=== PATIENT | female | born 1975 | race Caucasian/White ===

== ENCOUNTER 2017-10-23 15:18 | Emergency (ER) | payer OTHER ==
[2017-10-23] MEDS ORDERED: D50W 50 ml Abboject IV ONE ×3 (15:25→19:47)
[2017-10-23] MEDS ORDERED: Sodium Chloride 0.9% 1000 ML 1,000 ML ONE ×3 (15:25→17:23)
--- NOTE | 2017-10-23 15:38 | ERPHSYRPT ---
- History of Present Illness Time Seen by Provider: 10/23/17 15:28 Source: patient Exam Limitations: no limitations Physician History: The patient is a 42-year-old female brought in by ambulance from a local doctor' s office where she was not feeling well and was nearly passing out. She was week. She hasn't been feeling well for several days. She has not eaten in 2 days. She has a chronic condition of alcoholic hepatitis with severe jaundice that has been evident for several years. She states she quit drinking alcohol 4 -6 months ago. She has a liver specialist in [place]. She also states she has an enlarged spleen. She denies vomiting or diarrhea. Timing/Duration: yesterday, gradual onset, worse Severity: severe Modifying Factors: Improves With: nothing Associated Symptoms: loss of appetite, weakness, No nausea, No vomiting, No abdominal pain Allergies/Adverse Reactions: cephalexin [From Keflex] Allergy (Intermediate, Verified 10/23/17 15:40) Rash Home Medications: Furosemide [Lasix] 20 mg PO DAILY 10/23/17 [History] Hx Tetanus, Diphtheria Vaccination/Date Given: Yes Hx Influenza Vaccination/Date Given: No Hx Pneumococcal Vaccination/Date Given: No - Review of Systems Constitutional: Fatigue, Weakness Eyes: No Symptoms Ears, Nose, & Throat: No Symptoms Respiratory: No Cough, No Dyspnea Cardiac: No Chest Pain, No Edema, No Syncope Abdominal/Gastrointestinal: Appetite Changes (decreased) Genitourinary Symptoms: No Dysuria Musculoskeletal: No Back Pain, No Neck Pain Skin: No Rash Neurological: No Dizziness, No Focal Weakness, No Sensory Changes Psychological: No Symptoms Endocrine: No Symptoms Hematologic/Lymphatic: No Symptoms Immunological/Allergic: No Symptoms All Other Systems: Reviewed and Negative - Past Medical History Pertinent Past Medical History: Yes Neurological History: No Pertinent History ENT History: No Pertinent History Cardiac History: No Pertinent History Respiratory History: No Pertinent History Endocrine Medical History: No Pertinent History Musculoskeletal History: No Pertinent History History: No Pertinent History Psycho-Social History: No Pertinent History Female Reproductive Disorders: No Pertinent History Other Medical History: swelling, gastric bypass - Past Surgical History Past Surgical History: Yes Neuro Surgical History: No Pertinent History Cardiac: No Pertinent History Respiratory: No Pertinent History Gastrointestinal: No Pertinent History Genitourinary: No Pertinent History Musculoskeletal: No Pertinent History Female Surgical History: No Pertinent History Other Surgical History: gastric bypass - Social History Smoking Status: Never smoker Exposure to second hand smoke: No Drug Use: none Patient Lives Alone: No - Nursing Vital Signs Nursing Vital Signs: Initial Vital Signs Temperature 97.8 F 10/23/17 15:23 Pulse Rate 106 H 10/23/17 15:23 Respiratory Rate 18 10/23/17 15:23 Blood Pressure 71/39 10/23/17 15:23 O2 Sat by Pulse Oximetry 100 10/23/17 15:23 Pain Scale Pain Intensity 4 - Physical Exam General Appearance: moderate distress, lethargy Eye Exam: scleral icterus Ears, Nose, Throat Exam: normal ENT inspection, TMs normal, pharynx normal, dry mucous membranes, other (poor dentition) Neck Exam: normal inspection, non-tender, supple, full range of motion Respiratory Exam: normal breath sounds, lungs clear, No respiratory distress Cardiovascular Exam: regular rate/rhythm, murmur Gastrointestinal/Abdomen Exam: distention Pelvic Exam: not done Rectal Exam: not done Back Exam: normal inspection, normal range of motion, No CVA tenderness, No vertebral tenderness Extremity Exam: normal inspection, normal range of motion, pelvis stable Neurologic Exam: confusion Skin Exam: jaundice Lymphatic Exam: No adenopathy SpO2 Interpretation: normal - Radiology Exams Chest X-ray Interpretation: Interpreted by me, Negative Ordered Tests: Active Orders 24 hr Category Date Time Status ACCUCHECK [Accucheck] STAT Care 10/23/17 16:33 Active Clean Catch Urine Specimen STAT Care 10/23/17 15:43 Active IV Insertion STAT Care 10/23/17 15:43 Active ABDOMEN AND PELVIS W/0 CONTRAS [CT] Stat Exams 10/23/17 15:44 Completed CHEST 1 VIEW (PORTABLE) Stat Exams 10/23/17 18:43 Taken AMYLASE Stat Lab 10/23/17 15:58 Completed BLOOD CULTURE Stat Lab 10/23/17 16:40 Received CBC W DIFF Stat Lab 10/23/17 15:58 Completed CMP Stat Lab 10/23/17 15:58 Completed ETHYL ALCOHOL Stat Lab 10/23/17 15:58 Completed HCG QUALITATIVE,SERUM Stat Lab 10/23/17 15:58 Completed LIPASE Stat Lab 10/23/17 15:58 Completed Lactic Acid Stat Lab 10/23/17 15:57 Completed Lactic Acid Stat Lab 10/23/17 18:55 Results Manual Differential NC Stat Lab 10/23/17 15:58 Completed PROTIME WITH INR Stat Lab 10/23/17 16:07 Completed UA W/RFX UR CULTURE Stat Lab 10/23/17 19:02 Received Urine Triage Profile Stat Lab 10/23/17 19:02 Ordered Medication Summary Generic Name Dose Route Start Last Admin Trade Name Nora PRN Reason Stop Dose Admin Sodium Chloride 1,000 mls @ 100 mls/hr 10/23/17 17:15 10/23/17 17:25 Sodium Chloride 0.9% 1000 Ml IV 11/22/17 17:14 100 mls/hr .Q10H WILFREDO Administration Sodium Chloride 1,000 mls @ 999 mls/hr 10/23/17 18:43 Sodium Chloride 0.9% 1000 Ml IV 10/23/17 19:43 .Q1H1M STA Discontinued Medications Generic Name Dose Route Start Last Admin Trade Name Nora PRN Reason Stop Dose Admin Dextrose Confirm 10/23/17 15:25 D50w 50 Ml Abboject Administered 10/23/17 15:26 Dose 50 ml IV .STK-MED ONE Dextrose Confirm 10/23/17 16:42 D50w 50 Ml Abboject Administered 10/23/17 16:43 Dose 50 ml IV .STK-MED ONE Sodium Chloride Confirm 10/23/17 15:25 Sodium Chloride 0.9% 1000 Ml Administered 10/23/17 15:26 Dose 1,000 mls @ ud .ROUTE .STK-MED ONE Sodium Chloride 1,000 mls @ 999 mls/hr 10/23/17 15:43 10/23/17 16:04 Sodium Chloride 0.9% 1000 Ml IV 10/23/17 16:43 999 mls/hr .Q1H1M STA Administration Sodium Chloride Confirm 10/23/17 15:52 Sodium Chloride 0.9% 1000 Ml Administered 10/23/17 15:53 Dose 1,000 mls @ ud .ROUTE .STK-MED ONE Ampicillin Sodium/Sulbactam Sodium 1.5 gm in 100 mls @ 200 mls/hr 10/23/17 16: 08 10/23/17 16:33 Unasyn 1.5gm / Nacl 100ml IV 10/23/17 16:37 200 mls/hr STAT STA Administration Ampicillin Sodium/Sulbactam Sodium Confirm 10/23/17 16:31 Unasyn 1.5gm / Nacl 100ml Administered 10/23/17 16:32 Dose 1.5 gm in 100 mls @ ud .ROUTE .STK-MED ONE Ondansetron HCl 4 mg 10/23/17 15:43 10/23/17 16:01 Zofran 4 Mg/2 Ml Vial IV 10/23/17 15:44 4 mg STAT ONE Administration Ondansetron HCl Confirm 10/23/17 15:52 Zofran 4 Mg/2 Ml Vial Administered 10/23/17 15:53 Dose 4 mg .ROUTE .STK-MED ONE Pantoprazole Sodium 40 mg 10/23/17 15:43 10/23/17 16:01 Protonix 40 Mg Iv IV 10/23/17 15:44 40 mg STAT ONE Administration Pantoprazole Sodium Confirm 10/23/17 15:52 Protonix 40 Mg Iv Administered 10/23/17 15:53 Dose 40 mg IV .STK-MED ONE Potassium Chloride 40 meq 10/23/17 16:58 10/23/17 17:24 Klor Con 10 Meq PO 10/23/17 16:59 40 meq STAT ONE Administration Potassium Chloride Confirm 10/23/17 17:23 Klor Con 10 Meq Administered 10/23/17 17:24 Dose 40 meq PO .STK-MED ONE Lab/Rad Data: Laboratory Result Diagrams 10/23/17 15:58 10/23/17 15:58 Laboratory Results 10/23/17 10/23/17 10/23/17 Range/Units 18:55 17:22 16:07 WBC (4.0-10.5) K/mm3 RBC (4.1-5.4) M/mm3 Hgb (12.0-16.0) gm/dl Hct (35-47) % MCV (78-100) fl MCH (26-32) pg MCHC (32-36) g/dl RDW (11.5-14.0) % Plt Count (150-450) K/mm3 MPV (6-9.5) fl Gran % (36.0-66.0) % Eos # (Auto) (0-0.5) Absolute Lymphs (auto) (1.0-4.6) Absolute Monos (auto) (0.0-1.3) Lymphocytes % (24.0-44.0) % Monocytes % (0.0-12.0) % Eosinophils % (0.00-5.0) % Basophils % (0.0-0.4) % Absolute Granulocytes (1.4-6.9) Basophils # (0-0.4) PT 62.8 H (9.95-12.35) SECONDS INR 5.28 H* (0.8-3.0) Sodium (137-145) mmol/L Potassium (3.5-5.1) mmol/L Chloride (98-107) mmol/L Carbon Dioxide (22-30) mmol/L Anion Gap (5-15) MEQ/L BUN (7-17) mg/dL Creatinine (0.52-1.04) mg/dL Estimated GFR ML/MIN Glucose (74-106) mg/dL Lactic Acid 12.1 H (0.4-2.0) Calcium (8.4-10.2) mg/dL Total Bilirubin (0.2-1.3) mg/dL AST (14-36) U/L ALT (0-35) U/L Alkaline Phosphatase (38-126) U/L Ammonia 33 H (9-30) umol/L Serum Total Protein (6.3-8.2) g/dL Albumin (3.5-5.0) g/dL Amylase (30-110) U/L Lipase (23-300) U/L Serum , Qual (Negative) Ethyl Alcohol (0-10) mg/dL 10/23/17 10/23/17 10/23/17 Range/Units 15:58 15:58 15:58 WBC 5.6 (4.0-10.5) K/mm3 RBC 2.69 L (4.1-5.4) M/mm3 Hgb 9.4 L (12.0-16.0) gm/dl Hct 27.0 L (35-47) % MCV 100.4 H (78-100) fl MCH 34.9 H (26-32) pg MCHC 34.8 (32-36) g/dl RDW 15.7 H (11.5-14.0) % Plt Count 108 L (150-450) K/mm3 MPV 10.5 H (6-9.5) fl Gran % 73.6 H (36.0-66.0) % Eos # (Auto) 0.01 (0-0.5) Absolute Lymphs (auto) 1.18 (1.0-4.6) Absolute Monos (auto) 0.28 (0.0-1.3) Lymphocytes % 21.2 L (24.0-44.0) % Monocytes % 5.0 (0.0-12.0) % Eosinophils % 0.2 (0.00-5.0) % Basophils % 0.0 (0.0-0.4) % Absolute Granulocytes 4.10 (1.4-6.9) Basophils # 0 (0-0.4) PT (9.95-12.35) SECONDS INR (0.8-3.0) Sodium 131 L (137-145) mmol/L Potassium 2.8 L* (3.5-5.1) mmol/L Chloride 99 (98-107) mmol/L Carbon Dioxide 10 L* (22-30) mmol/L Anion Gap 25.1 H (5-15) MEQ/L BUN 19 H (7-17) mg/dL Creatinine 3.76 H (0.52-1.04) mg/dL Estimated GFR 13.9 ML/MIN Glucose < 20 L* (74-106) mg/dL Lactic Acid (0.4-2.0) Calcium 8.8 (8.4-10.2) mg/dL Total Bilirubin 8.60 H (0.2-1.3) mg/dL AST 73 H (14-36) U/L ALT (0-35) U/L Alkaline Phosphatase 111 (38-126) U/L Ammonia (9-30) umol/L Serum Total Protein 6.5 (6.3-8.2) g/dL Albumin 2.1 L (3.5-5.0) g/dL Amylase 36 (30-110) U/L Lipase 28 (23-300) U/L Serum , Qual NEGATIVE (Negative) Ethyl Alcohol < 10 (0-10) mg/dL 10/23/17 Range/Units 15:57 WBC (4.0-10.5) K/mm3 RBC (4.1-5.4) M/mm3 Hgb (12.0-16.0) gm/dl Hct (35-47) % MCV (78-100) fl MCH (26-32) pg MCHC (32-36) g/dl RDW (11.5-14.0) % Plt Count (150-450) K/mm3 MPV (6-9.5) fl Gran % (36.0-66.0) % Eos # (Auto) (0-0.5) Absolute Lymphs (auto) (1.0-4.6) Absolute Monos (auto) (0.0-1.3) Lymphocytes % (24.0-44.0) % Monocytes % (0.0-12.0) % Eosinophils % (0.00-5.0) % Basophils % (0.0-0.4) % Absolute Granulocytes (1.4-6.9) Basophils # (0-0.4) PT (9.95-12.35) SECONDS INR (0.8-3.0) Sodium (137-145) mmol/L Potassium (3.5-5.1) mmol/L Chloride (98-107) mmol/L Carbon Dioxide (22-30) mmol/L Anion Gap (5-15) MEQ/L BUN (7-17) mg/dL Creatinine (0.52-1.04) mg/dL Estimated GFR ML/MIN Glucose (74-106) mg/dL Lactic Acid 13.8 H (0.4-2.0) Calcium (8.4-10.2) mg/dL Total Bilirubin (0.2-1.3) mg/dL AST (14-36) U/L ALT (0-35) U/L Alkaline Phosphatase (38-126) U/L Ammonia (9-30) umol/L Serum Total Protein (6.3-8.2) g/dL Albumin (3.5-5.0) g/dL Amylase (30-110) U/L Lipase (23-300) U/L Serum , Qual (Negative) Ethyl Alcohol (0-10) mg/dL - Progress Progress: unchanged Progress Note: 10/23/17 18:[address] Lopez of GI, Liver service, who accepts pt. Recommends albumin at 1 mg/kg/day IV, CXR, and urine culture. Counseled pt/family regarding: lab results, diagnosis, need for follow-up, rad results - Departure Time of Disposition: 18:38 Departure Disposition: Transfer (transfer to GI,liver service per Dr Lopez. ) Clinical Impression: Hepatic failure due to alcoholism, Renal failure, Hypoglycemia Condition: Fair Critical Care Time: No Referrals: JIM GONZALEZ MD [Primary Care Provider] -
[2017-10-23] MEDS ORDERED: PROTONIX 40 MG IV IV ONE (15:52)
[2017-10-23] MEDS ORDERED: Zofran 4 MG/2 ML VIAL ONE (15:52)
[2017-10-23 15:58] LABS: Basophil (Absolute #) 0 (0-0.4); Eosinophil % 0.2 % (0.00-5.0); Eosinophil (Absolute #) 0.01 (0-0.5); Granulocytes % 73.6 % (36.0-66.0); Hemoglobin 9.4 gm/dl (12.0-16.0); Lymphocyte (Absolute #) 1.18 (1.0-4.6); Lymphocytes % 21.2 % (24.0-44.0); Mean Cell Volume 100.4 fl (78-100); Mean Corpuscular Hemoglobin 34.9 pg (26-32); Mean Corpuscular Hgb Concent. 34.8 g/dl (32-36); Mean Platelet Volume 10.5 fl (6-9.5); Monocyte (Absolute #) 0.28 (0.0-1.3); Platelet Count 108 K/mm3 (150-450); Red Blood Count 2.69 M/mm3 (4.1-5.4); Red Cell Distribution Width 15.7 % (11.5-14.0); White Blood Count 5.6 K/mm3 (4.0-10.5)
[2017-10-23 16:00] LABS: Lactic Acid 13.8 (0.4-2.0)
[2017-10-23] MEDS: PROTONIX 40 MG IV IV ONE (16:01)
[2017-10-23] MEDS: Zofran 4 MG/2 ML VIAL IV ONE (16:01)
[2017-10-23] MEDS: Sodium Chloride 0.9% 1000 ML 1,000 ML IV STA (16:04)
[2017-10-23] MEDS ORDERED: Unasyn 1.5GM / NaCl 100ML 1.5 GM/100 ML IVPB ONE (16:31)
[2017-10-23] MEDS: Unasyn 1.5GM / NaCl 100ML 1.5 GM/100 ML IVPB IV STA (16:33)
[2017-10-23 16:39] LABS: ALBUMIN 2.1 g/dL (3.5-5.0); ALKALINE PHOSPHATASE 111 U/L (38-126); AMYLASE 36 U/L (30-110); ANION GAP 25.1 MEQ/L (5-15); BLOOD UREA NITROGEN 19 mg/dL (7-17); CHLORIDE 99 mmol/L (98-107); Calcium 8.8 mg/dL (8.4-10.2); Creatinine 1 3.76 mg/dL (0.52-1.04); LIPASE 28 U/L (23-300); SGOT/AST 73 U/L (14-36); SODIUM 131 mmol/L (137-145); Total Protein 6.5 g/dL (6.3-8.2)
[2017-10-23 16:41] LABS: INR 5.28 (0.8-3.0)
[2017-10-23 16:43] LABS: Glucose < 20 mg/dL (74-106); Potassium 2.8 mmol/L (3.5-5.1)
[2017-10-23 16:44] LABS: Carbon Dioxide 10 mmol/L (22-30); ETHYL ALCOHOL < 10 mg/dL (0-10)
[2017-10-23] MEDS ORDERED: Klor Con 10 MEQ PO ONE (17:23)
[2017-10-23] MEDS: Klor Con 10 MEQ PO ONE (17:24)
--- NOTE | 2017-10-23 17:24 | XRAY ---
Indication: Abdominal distention and nausea. History of hepatitis or Multiple contiguous axial images obtained through the abdomen and pelvis without contrast as ordered. Comparison: January 03, 2015. Lung bases again essentially clear. Heart is not enlarged. There is now mild diffuse anasarca. New moderate abdominal and pelvic ascites. No free air. Again diffuse fatty liver and mild distended bladder without gallstones. Spleen is again enlarged today measuring 15.6 cm in craniocaudal dimension. Again previous gastric bypass surgery. Noncontrasted stomach and bowel loops appear nonobstructed. Remaining pancreas, adrenal glands, kidneys, ureters, bladder, uterus, and aorta appear unremarkable for noncontrast exam. Osseous structures intact. New finding for remote appearing L4 superior endplate fracture with less than 50% height loss. Impression: 1. New moderate abdominal/pelvic ascites and mild anasarca. 2. Again incidental fatty liver, mild distended gallbladder, and splenomegaly. 3. New finding remote appearing L4 superior endplate fracture. CTDI 22.99
[2017-10-23] MEDS: Sodium Chloride 0.9% 1000 ML 1,000 ML IV SCH (17:25)
[2017-10-23] MEDS ORDERED: Sodium Chloride 0.9% 1000 ML 1,000 ML IV STA (18:43)
[2017-10-23 18:59] LABS: Lactic Acid 12.1 (0.4-2.0)
[2017-10-23 19:13] LABS: Appearance CLOUDY (CLEAR); Glucose NEGATIVE (NEGATIVE); Ketones SMALL (NEGATIVE); Leukocyte Esterase 2+ (NEGATIVE); Nitrite NEGATIVE (NEGATIVE); Protein,Urine Dip 100 (Negative)
[2017-10-23 19:14] LABS: Bacteria MANY /HPF (NEGATIVE); Bilirubin LARGE (NEGATIVE); Blood 50 Ery/ul (0-5); Epithelial Cells MODERATE /HPF (FEW); Urobilinogen COLOR INTERFERENCE mg/dL (0-1); WBC 50-100 /HPF (0-5)
[2017-10-23 19:24] LABS: Amphetamine,Urine NEGATIVE (NEGATIVE); Barbiturate,Urine NEGATIVE (NEGATIVE); Benzodiazepine,Urine NEGATIVE (NEGATIVE); Cocaine,Urine NEGATIVE (NEGATIVE); Methadone,Urine NEGATIVE (NEGATIVE); Opiate,Urine NEGATIVE (NEGATIVE); PCP,Urine NEGATIVE (NEGATIVE); THC,Urine NEGATIVE (NEGATIVE)
[2017-10-23] MEDS: D50W 50 ml Abboject IV ONE (19:57)
[2017-10-23 20:02] VITALS: BP 81/43; PULSE 113; O2SAT 100
--- NOTE | 2017-10-24 08:47 | XRAY ---
Indication: Weakness. Comparison: None Portable chest demonstrates mild right infrahilar infiltrate versus atelectasis. Remaining heart, lungs, and bony thorax unremarkable. Comment: Right lung finding not reported on preliminary interpretation by the ER clinician. Telephone report given to Dr. Wallace at 0843 hrs. on October 24, 2017.
== END 2017-10-23 20:12 | disposition short-term general hospital (02) ==
LOC: ED 15:18
DX: K70.40 Alcoholic hepatic failure without coma (principal); N19 Unspecified kidney failure; E16.2 Hypoglycemia, unspecified
CPT/HCPCS: 36000; 36415; 71045; 74176; 80053; 80307; 81000; 82140; 82150; 82962; 83605; 83690; 84703; 85025; 85610; 87040; 87077; 87086; 87186; 96360; 96374; 96375; 96376; 99285; P9612; J0295; J2405; A9270-GY; G0480